=== PATIENT | female | born 1965 | race Caucasian/White ===

== ENCOUNTER 2017-02-24 08:20 | Emergency (ER) | payer BC ==
[~2017-02-24] VITALS: Ht 160 cm; Wt 93.9 kg
[~2017-02-24 08:20] MED LIST: OMEP20CA3 PO; [UNRECOGNIZED DRUG - OTHER]
[2017-02-24] MEDS ORDERED: OMEP40CA2 PO (08:40)
[2017-02-24] MEDS ORDERED: IMOD2CAP PO (08:40)
[2017-02-24] MEDS ORDERED: HUMI40KI SC (08:40)
[2017-02-24] MEDS ORDERED: PARO10TA84 PO (08:45)
[2017-02-24] MEDS ORDERED: PERCOCET 5MG/325MG TAB PO ONE (10:00)
--- NOTE | 2017-02-24 10:18 | REP ---
LEFT KNEE SERIES, COMPLETE: 02/24/2017. Clinical history: Soft-tissue swelling about the knee. There is some swelling along the medial aspect of the knee at the patellofemoral joint on the sunrise view. A suprapatellar effusion is noted on the lateral view. There is a patellar tilt and a few millimeters of lateral patellar subluxation on the sunrise view. No joint space narrowing in any of the three compartments. There is no loose body or osteochondral defect. Tiny spurs tibial spines and medial greater than lateral compartment. Proximal tibiofibular deflation intact. Impression: 1. Minor degenerative changes at the tibial spines and all three compartment margins. A suprapatellar effusion is seen and swelling anteriorly and medial to the patella with a few millimeters of patellar subluxation. Is there evidence of medial joint line tenderness? No visible fracture, loose body or osteochondral defect. Signed by Lauri Gilbert MD 02/24/2017 10:55 A
[2017-02-24] MEDS ORDERED: PERC5TAB6 PO (10:19)
[2017-02-24] MEDS ORDERED: MOBI7.5T10 PO (10:29)
[2017-02-24 10:32] VITALS: BP 165/96
== END 2017-02-24 10:34 | disposition home or self-care (01) ==
LOC: M ED 09:42
DX: M17.12 Unilateral primary osteoarthritis, left knee (principal); M25.562 Pain in left knee; M25.462 Effusion, left knee; M06.9 Rheumatoid arthritis, unspecified; K21.9 Gastro-esophageal reflux disease without esophagitis; K58.9 Irritable bowel syndrome, unspecified; Z87.891 Personal history of nicotine dependence; Z79.899 Other long term (current) drug therapy

== ENCOUNTER → 2017-03-25 | Outpatient (CLI) | payer BC ==
[~2017-03-25] MED LIST changes: +HUMI40KI SC; +IMOD2CAP PO; +MOBI7.5T10 PO; +OMEP40CA2 PO; +PARO10TA84 PO; +PERC5TAB6 PO
--- NOTE | 2017-03-25 10:26 | REPMRS ---
Patient History The patient states she had a clinical breast exam in 01/2017. Family history of colorectal cancer in father. Taking hormonal contraceptives for 9 years. Digital Woman Screen Mammo: March 25, 2017 - Exam #: [id number] Bilateral CC and MLO view(s) were taken. Technologist: Qi Smith, Technologist Prior study comparison: April 03, 2016, bilateral digital mammo screening bilat, performed at [facility]. September 21, 2014, bilateral digital mammo screening bilat, performed at [facility]. FINDINGS: The breast tissue is heterogeneously dense. This may lower the sensitivity of mammography. There has been no change in the appearance of the mammogram from the prior studies. There is a moderate amount of residual fibroglandular tissue which is fairly symmetric. There is no interval development of dominant mass, areas of architectural distortion, or clustered microcalcification typical of malignancy. ASSESSMENT: BI-RADS/ACR category 1 mammogram. Negative. Recommendation Routine screening mammogram in 1 year (for women over age 40). This mammogram was interpreted with the aid of an FDA-approved computer-aided dectection system. Electronically Signed By: Thor Lin MD 03/25/17 [id number]
== END ==
LOC: M WHC 07:43
PROVIDERS: ATTEND Nurse Practitioner Family
DX: Z12.31 Encounter for screening mammogram for malignant neoplasm of breast (principal); Z92.0 Personal history of contraception

== ENCOUNTER → 2017-04-11 | Outpatient (REF) | payer BC | LOC: M SFHCWAGY 13:07 | PROVIDERS: ATTEND Nurse Practitioner Women's Health | DX: N87.9 Dysplasia of cervix uteri, unspecified (principal) ==

== ENCOUNTER → 2018-01-11 | Outpatient (CLI) | payer BC | LOC: M LRY 11:35 | DX: M25.531 Pain in right wrist (principal) | CPT/HCPCS: 73110 ==

== ENCOUNTER → 2018-03-26 | Outpatient (CLI) | payer BC | LOC: M WHC 07:58 | DX: Z12.31 Encounter for screening mammogram for malignant neoplasm of breast (principal) | CPT/HCPCS: 77067 ==

== ENCOUNTER → 2018-03-26 | Outpatient (REF) | payer BC ==
[2018-03-26 12:11] LABS: LUTEINIZING HORMONE 9.6 mIU/mL
[2018-03-26 12:13] LABS: FOLLICLE STIMULATING HORMONE 36.9 mIU/mL
[2018-03-28 14:15] LABS: HPV HYBRID CAPTURE II Negative (Negative)
== END ==
LOC: M SFHCWAGY 08:17
DX: Z12.4 Encounter for screening for malignant neoplasm of cervix (principal); R23.2 Flushing; N95.1 Menopausal and female climacteric states
CPT/HCPCS: 83001

== ENCOUNTER → 2018-07-12 | Outpatient (CLI) | payer OTHER, BC | LOC: M EKG 11:13 | DX: Z01.810 Encounter for preprocedural cardiovascular examination (principal); G56.01 Carpal tunnel syndrome, right upper limb; G56.21 Lesion of ulnar nerve, right upper limb | CPT/HCPCS: 93005 ==

== ENCOUNTER → 2018-07-12 | Outpatient (CLI) | payer OTHER, BC | LOC: M WUC 12:12 | DX: S90.32XA Contusion of left foot, initial encounter (principal) | CPT/HCPCS: 73630 ==

== ENCOUNTER → 2018-10-05 | Outpatient (CLI) | payer BC ==
[2018-10-05 17:09] LABS: CHOLESTEROL LEVEL 247 MG/DL (<200); HDL CHOLESTEROL 55 MG/DL (>40); LDL CHOLESTEROL 146 MG/DL (<100); NON-HDL-C 192 MG/DL; TRIGLYCERIDES LEVEL 231 MG/DL (<150)
== END ==
LOC: M WUC 08:18
DX: I10 Essential (primary) hypertension (principal)
CPT/HCPCS: 80061

== ENCOUNTER 2018-11-28 07:05 | Day surgery (SDC) | payer BC ==
[~2018-11-28] VITALS: Ht 157.5 cm; Wt 86.5 kg
[~2018-11-28 07:05] MED LIST changes: +ENBR50IN4 SC; +LISI10TA4 PO; +MOBI4TAB PO; -MOBI7.5T10 PO; +NAPR-885 PO; +OTEZ1TAB3 PO; +PARO10TA3 PO; -PARO10TA84 PO; +PERC5TAB12 PO; -PERC5TAB6 PO; +TRAM50TA2 PO
[2018-11-28 07:33] LABS: HEMATOCRIT 39.4 % (36.0-47.0); MEAN CORPUSCULAR HEMOGLOBIN 29.3 pg (27.0-33.0); MEAN CORPUSCULAR VOLUME 88.9 fl (80.0-96.0); PLATELET COUNT, AUTOMATED 425 10^3/uL (150-450); RED BLOOD COUNT 4.43 10^6/uL (4.00-5.40); WHITE BLOOD COUNT 5.5 10^3/uL (4.0-10.0)
[2018-11-28] MEDS ORDERED: BUPIVACAINE HCL 0.25% 30 ML VIAL As Ordered ONE (09:04)
[2018-11-28] MEDS ORDERED: ONDANSETRON 4MG/2ML VIAL (J2405) As Ordered ONE (09:31)
[2018-11-28] MEDS ORDERED: LIDOCAINE 2% INJ 100 MG/5 ML SDV (FOR ANES.) As Ordered ONE (09:31)
[2018-11-28] MEDS ORDERED: KETOROLAC 60 MG/2 ML VIAL (J1885) As Ordered ONE (09:31)
[2018-11-28] MEDS ORDERED: PROPOFOL 200 MG/20 ML VIAL As Ordered ONE (09:31)
[2018-11-28] MEDS ORDERED: MIDAZOLAM INJ 2 MG/2 ML VIAL (J2250) As Ordered ONE (09:31)
[2018-11-28] MEDS ORDERED: fentaNYL 250 MCG/5 ML INJECTION (J3010) As Ordered ONE (09:31)
[2018-11-28] MEDS ORDERED: dexameTHASONE 4 MG/ML 1ML VIAL (J1100) As Ordered ONE (09:31)
[2018-11-28] MEDS ORDERED: ePHEDrine SULFATE 25 MG/5 ML(5MG/ML) SYRINGE As Ordered ONE (09:52)
[2018-11-28] MEDS ORDERED: METOCLOPRAMIDE INJ 10MG/2ML VIAL (J2765) IV PRN (10:15)
[2018-11-28] MEDS ORDERED: fentaNYL 100 MCG/2 ML INJECTION (J3010) IV PRN (10:15)
[2018-11-28] MEDS ORDERED: LR 1,000 ML IV SCH (10:15)
[2018-11-28] MEDS ORDERED: ONDANSETRON 4MG/2ML VIAL (J2405) IV PRN (10:15)
[2018-11-28] MEDS ORDERED: PERCOCET 5MG/325MG TAB PO PRN (10:15)
[2018-11-28 10:36] VITALS: BP 171/85
[2018-11-28] MEDS ORDERED: KETOROLAC 30 MG/ML VIAL (J1885) IV SCH (11:00)
--- NOTE | 2018-11-28 14:59 | RO ---
DATE OF PROCEDURE: 11/28/2018 PREOPERATIVE DIAGNOSIS: Embedded intrauterine device . POSTOPERATIVE DIAGNOSIS: Embedded intrauterine device. PROCEDURE PERFORMED: Intrauterine device removal. SURGEON: Dinorah Cerna MD JACK PRIZER: None. ANESTHESIA: General via laryngeal mask airway. ESTIMATED BLOOD LOSS: None. INTRAVENOUS FLUIDS: 600 mL. URINE OUTPUT: Not obtained. SPECIMENS: None. OPERATIVE FINDINGS: IUD in the uterine cavity. DESCRIPTION OF OPERATION: After informed consent was obtained and written consent was reviewed, the patient was brought to the operating room where general anesthesia was obtained via laryngeal mask airway. She was placed in lithotomy position, was prepped and draped in a normal sterile fashion. A time out in the operating room was then performed identifying the patient, procedure to be performed as well as drug allergies. A bivalve speculum was then placed revealing the cervix. Marcos forceps was then inserted into the cervical os where I was able to grasp the IUD and it was removed without any difficulty. Instrument were then removed from the patient's vagina. She was taken out of lithotomy position, was awakened from anesthesia and taken to the recovery in stable condition. Counts were correct. MTDD
== END 2018-11-28 11:09 | disposition home or self-care (01) ==
LOC: M SDC 07:05
PROVIDERS: ATTEND Obstetrics & Gynecology
DX: T83.39XA Other mechanical complication of intrauterine contraceptive device, initial encounter (principal); I10 Essential (primary) hypertension; K21.9 Gastro-esophageal reflux disease without esophagitis; Z79.899 Other long term (current) drug therapy; Z87.891 Personal history of nicotine dependence
CPT/HCPCS: 36415; 58301; 85027; 86850; 86900; 86901; J1100; J2250; J2405; J3010

== ENCOUNTER 2019-02-03 07:52 | Emergency (ER) | payer BC ==
[~2019-02-03] VITALS: Ht 157.5 cm; Wt 84.1 kg
[2019-02-03] MEDS ORDERED: METOCLOPRAMIDE INJ 10MG/2ML VIAL (J2765) IV ONE (09:15)
[2019-02-03] MEDS ORDERED: NS 1,000 ML IV ONE (09:15)
[2019-02-03 09:48] LABS: BASO % 0.6 % (0.0-1.0); EOS # 0.1 10^3/uL (0.0-0.50); EOS % 1.2 % (0.0-3.0); HEMATOCRIT 42.4 % (36.0-47.0); HEMOGLOBIN 14.1 g/dl (12.0-15.5); LYMPH # 1.4 10^3/uL (1.5-4.5); LYMPH % 20.8 % (24.0-44.0); MEAN CORPUSCULAR HEMOGLOBIN 29.4 pg (27.0-33.0); MEAN CORPUSCULAR HGB CONC 33.3 g/dl (32.0-36.5); MEAN CORPUSCULAR VOLUME 88.3 fl (80.0-96.0); MONO # 0.4 10^3/uL (0.0-0.8); MONO % 6.3 % (0.0-5.0); NEUTROPHILS # 4.9 10^3/uL (1.8-7.7); NEUTROPHILS % 70.7 % (36.0-66.0); PLATELET COUNT, AUTOMATED 398 10^3/uL (150-450); WHITE BLOOD COUNT 6.9 10^3/uL (4.0-10.0)
[2019-02-03 10:28] LABS: ALBUMIN 4.5 GM/DL (3.2-5.2); ALT/SGPT 18 U/L (12-78); BILIRUBIN,DIRECT < 0.1 MG/DL (0.0-0.2); BILIRUBIN,TOTAL 0.8 MG/DL (0.2-1.0); BLOOD UREA NITROGEN 17 MG/DL (7-18); CALCIUM LEVEL 9.1 MG/DL (8.5-10.1); CARBON DIOXIDE LEVEL 26 MEQ/L (21-32); CHLORIDE LEVEL 107 MEQ/L (98-107); CREATININE FOR GFR 0.81 MG/DL (0.55-1.30); GLOMERULAR FILTRATION RATE > 60.0 (>51); GLUCOSE, FASTING 91 MG/DL (70-100); LIPASE 90 U/L (73-393); POTASSIUM SERUM 4.3 MEQ/L (3.5-5.1); SODIUM LEVEL 139 MEQ/L (136-145); TOTAL PROTEIN 8.1 GM/DL (6.4-8.2)
[2019-02-03] MEDS ORDERED: REGL10TA6 PO (11:12)
[2019-02-03 11:18] VITALS: BP 154/84
== END 2019-02-03 11:25 | disposition home or self-care (01) ==
LOC: M ED 07:52
DX: R11.2 Nausea with vomiting, unspecified (principal); R19.7 Diarrhea, unspecified; M06.9 Rheumatoid arthritis, unspecified; F41.9 Anxiety disorder, unspecified; Z87.891 Personal history of nicotine dependence; Z88.8 Allergy status to other drugs, medicaments and biological substances; Z79.899 Other long term (current) drug therapy; Z79.1 Long term (current) use of non-steroidal anti-inflammatories (NSAID)
CPT/HCPCS: 80048; 80076; 83690; 85025; 96361; 96374; 99284; J2765

== ENCOUNTER → 2019-03-27 | Outpatient (CLI) | payer BC ==
[~2019-03-27] MED LIST changes: +REGL10TA6 PO
--- NOTE | 2019-03-27 09:05 | REPMRS ---
Patient History The patient states she had a clinical breast exam in 03/2019. Family history of colorectal cancer in father, prostate cancer at age 83 in paternal uncle. Took hormonal contraceptives for 14 years. Digital Woman Screen Mammo: March 27, 2019 - Exam #: [id number] Bilateral CC and MLO view(s) were taken. Technologist: Qi Smith, Technologist Prior study comparison: March 26, 2018, digital woman screen mammo performed at [facility]. March 25, 2017, digital woman screen mammo performed at [facility]. April 03, 2016, bilateral digital mammo screening bilat, performed at [facility]. FINDINGS: The breast tissue is heterogeneously dense. This may lower the sensitivity of mammography. There is a moderate amount of heterogeneously dense fibroglandular tissue which is fairly symmetric. There is no interval development of dominant mass, architectural distortion, or clustered microcalcification typical of malignancy. There has been no change in the appearance of the mammogram from the prior studies. 3-D tomosynthesis shows no additional findings. Assessment: BI-RADS/ACR category 1 mammogram. Negative Mammogram. Recommendation Routine screening mammogram of both breasts in 1 year (for women over age 40). This patient's Lifetime Breast Cancer RIsk is estimated at 8.8 %. This mammogram was interpreted with the aid of an FDA-approved computer-aided dectection system. Electronically Signed By: Chau Carvajal MD 03/27/19 0904
== END ==
LOC: M WHC 08:12
PROVIDERS: ATTEND Nurse Practitioner Women's Health
DX: Z12.31 Encounter for screening mammogram for malignant neoplasm of breast (principal); Z80.0 Family history of malignant neoplasm of digestive organs; Z92.0 Personal history of contraception

== ENCOUNTER → 2020-05-24 | Outpatient (REF) | payer BC ==
[~2020-05-24] MED LIST changes: +CITA20TA6 PO; -ENBR50IN4 SC; +ETAN50PE SC; +METH2.5T48 PO; +OMEP1CAP73 PO; -OMEP20CA3 PO; -OMEP40CA2 PO; +OMEP40CA97 PO
== END ==
LOC: M SFHCWAGY 10:48
PROVIDERS: ATTEND Nurse Practitioner Women's Health
DX: Z12.4 Encounter for screening for malignant neoplasm of cervix (principal)
CPT/HCPCS: 87624; G0123

== ENCOUNTER → 2020-05-24 | Outpatient (CLI) | payer BC ==
--- NOTE | 2020-05-25 07:28 | REP ---
BILATERAL SCREENING MAMMOGRAM WITH 3D TOMOSYNTHESIS: No family history of breast cancer. [facility] lifetime risk of breast cancer 8.6%. COMPARISON: Mammogram 03/27/2019 as well as other prior exams. Breast parenchyma is moderately dense in a heterogenous pattern, limiting the sensitivity of the mammogram. Possible round nodule is seen in the right axillary tail, upper outer quadrant, approximately 1.2 cm in diameter. No other definite mass is seen. No clustered microcalcifications are seen. No axillary adenopathy is seen. IMPRESSION: ACR 0, incomplete. Possible 1.2 cm nodule right axillary tail upper outer quadrant. Recommend spot compression views and ultrasound to further evaluate. BIRADS 0: BI-RADS/ACR category 0 mammogram, Incomplete: Need additional imaging evaluation and/or prior mammograms for comparison. This mammogram was interpreted with the aid of an FDA-approved computer-aided detection system. The patient states she/he had a clinical breast exam in 05/2020. The patient letter being requested is M0.
== END ==
LOC: M WHC 14:39
PROVIDERS: ATTEND Nurse Practitioner Women's Health
DX: R92.8 Other abnormal and inconclusive findings on diagnostic imaging of breast (principal)

== ENCOUNTER → 2020-05-28 | Outpatient (CLI) | payer BC | LOC: M LABSMTC 09:55 | PROVIDERS: ATTEND Anesthesiology | DX: Z01.818 Encounter for other preprocedural examination (principal); Z11.59 Encounter for screening for other viral diseases | CPT/HCPCS: C9803; U0003 ==

== ENCOUNTER 2020-06-01 07:11 | Day surgery (SDC) | payer BC ==
[~2020-06-01] VITALS: Ht 162.6 cm; Wt 94.7 kg
[~2020-06-01 07:11] MED LIST changes: +LIDOCAINE 2% MDV 20ML VIAL As Ordered ONE; +propofoL 200 MG/20 ML VIAL As Ordered ONE
[2020-06-01] MEDS ORDERED: NS 1,000 ML IV ONE (07:30)
--- NOTE | 2020-06-01 08:37 | ROOR ---
Patient Name: Annette Youssef Procedure Date: 06/01/2020 8:13 AM Date of : 1965 Age: 54 Room: [facility] Gender: Female Note Status: Finalized Procedure: Total Colonoscopy to Cecum Indications: Colon cancer screening in patient at increased risk: Colorectal cancer in father, High risk colon cancer surveillance: Personal history of colonic polyps, Last colonoscopy: 2015 Providers: Sharan Beasley MD Referring MD: Rubén Carnes MD Requesting Provider: Medicines: Monitored Anesthesia Care Complications: No immediate complications. Procedure: Pre-Anesthesia Assessment: - The heart rate, respiratory rate, oxygen saturations, blood pressure, adequacy of pulmonary ventilation, and response to care were monitored throughout the procedure. The Colonoscope was introduced through the anus and advanced to the cecum, identified by appendiceal orifice and ileocecal valve. The colonoscopy was performed without difficulty. The patient tolerated the procedure well. The quality of the bowel preparation was excellent. Findings: The perianal and digital rectal examinations were normal. Non-bleeding internal hemorrhoids were found during retroflexion. The hemorrhoids were small and Grade I (internal hemorrhoids that do not prolapse). No other significant abnormalities were identified in a careful examination of the remainder of the colon. The exam was otherwise without abnormality on direct and retroflexion views. Impression: - Non-bleeding internal hemorrhoids. - The examination was otherwise normal on direct and retroflexion views. - No specimens collected. - The exam was otherwise normal to the cecum. Recommendation: - Patient has a contact number available for emergencies. The signs and symptoms of potential delayed complications were discussed with the patient. Return to normal activities tomorrow. Written discharge instructions were provided to the patient. - High fiber diet. - Discharge patient to home. - Continue present medications. - Repeat colonoscopy in 5 years for screening purposes. - Return to referring physician. - The findings and recommendations were discussed with the patient. Sharan Beasley MD Sharan Beasley MD 06/01/2020 8:36:54 AM Electronically signed by Sharan Beasley MD Number of Addenda: 0 Note Initiated On: 06/01/2020 8:13 AM Estimated Blood Loss: Estimated blood loss: none.
[2020-06-01 08:58] VITALS: BP 149/71
== END 2020-06-01 09:00 | disposition home or self-care (01) ==
LOC: M OPP 07:11
PROVIDERS: ATTEND Internal Medicine Gastroenterology
DX: Z12.11 Encounter for screening for malignant neoplasm of colon (principal); Z86.010 Personal history of colon polyps; Z80.0 Family history of malignant neoplasm of digestive organs; K64.0 First degree hemorrhoids; K21.9 Gastro-esophageal reflux disease without esophagitis; Z79.899 Other long term (current) drug therapy; Z88.2 Allergy status to sulfonamides; Z88.8 Allergy status to other drugs, medicaments and biological substances; Z87.891 Personal history of nicotine dependence

== ENCOUNTER → 2020-06-03 | Outpatient (CLI) | payer BC ==
[~2020-06-03] MED LIST changes: -LIDOCAINE 2% MDV 20ML VIAL As Ordered ONE; -propofoL 200 MG/20 ML VIAL As Ordered ONE
--- NOTE | 2020-06-03 15:32 | REP ---
DIAGNOSTIC MAMMOGRAM RIGHT BREAST AND RIGHT BREAST ULTRASOUND: Spot compression views of the right breast performed in the upper outer quadrant and correlated with a recent mammogram of 05/24/2020, and compared to other prior exams. There does appear to be a smoothly marginated nodule approximately 1.2 cm in diameter in the right axillary tail. Comparing to prior studies dating back to 03/26/2018 including tomographic images, this appears stable. Real-time sonographic evaluation of the right axillary tail region demonstrates an intramammary lymph node 2.1 x 1.4 x 1.3 cm. This probably corresponds to the mammographic abnormality. IMPRESSION: ACR 2 benign. Smoothly marginated nodular opacity in the right axillary tail appears unchanged since 2018 and by ultrasound appears to represent an intramammary lymph node. ACR 2 benign. Stable findings. Recommend followup mammogram in 1 year. Patient letter requested is M1.
== END ==
LOC: M WHC 10:25
PROVIDERS: ATTEND Nurse Practitioner Women's Health
DX: Z12.31 Encounter for screening mammogram for malignant neoplasm of breast (principal)

== ENCOUNTER → 2020-08-05 | Outpatient (CLI) | payer BC ==
--- NOTE | 2020-08-12 15:51 | DEXA ---
AP SPINE L1 - L4 1.043 -1.2 -0.4 LT FEMUR TOTAL 1.010 0.0 0.7 LT NECK 0.913 -0.9 0.1 RT FEMUR TOTAL 0.952 -0.4 0.2 RT NECK 0.995 -0.3 0.7 TOTAL BODY TOTAL OTHER COMMENTS: Normal bone densitometry of the hips. There is low bone density of the spine. FOLLOW-UP: Recommendation for the next bone density exam: 2 years. HEIDI
== END ==
LOC: M WHC 10:29
PROVIDERS: ATTEND Family Medicine
DX: Z13.820 Encounter for screening for osteoporosis (principal)

== ENCOUNTER → 2021-04-17 | Outpatient (CLI) | payer BC ==
[~2021-04-17] MED LIST changes: +LISI10TA22 PO; -LISI10TA4 PO
[2021-04-17 13:26] LABS: CHOLESTEROL RISK RATIO 4.583 (<5)
== END ==
LOC: M WUC 09:36
PROVIDERS: ATTEND Family Medicine
DX: Z79.899 Other long term (current) drug therapy (principal); I10 Essential (primary) hypertension

== ENCOUNTER → 2021-06-14 | Outpatient (CLI) | payer BC ==
[~2021-06-14] MED LIST changes: +OMEP40CA4 PO; -OMEP40CA97 PO
--- NOTE | 2021-06-14 16:11 | REPMRS ---
Patient History The patient states she had a clinical breast exam in 05/2021. Family history of colorectal cancer in father, prostate cancer at age 83 in paternal uncle. Took hormonal contraceptives for 14 years. Digital Woman Screen Mammo: June 14, 2021 - Exam #: [id number] Bilateral CC and MLO view(s) were taken. Technologist: Fozia Olmos, Technologist Prior study comparison: June 03, 2020, right breast diagnostic unilateral mammo performed at [facility]. May 24, 2020, bilateral digital woman screen mammo performed at [facility]. FINDINGS: There are scattered fibroglandular densities. Screening. Digital screening (2D) mammography was performed bilaterally in the CC and MLO projections. Additionally, breast tomosynthesis (3D mammography) was performed bilaterally in the CC and MLO projections. Todays exam was compared to the prior exam/exams. By history, the patient has no complaints of a palpable breast abnormality or other significant breast complaints. The breasts are unchanged in size and shape. There are no annemarie-soft tissue densities or spiculated masses. There is no internal architectural distortion. Once again, stable benign appearing calcifications are seen.There are no suspicious annemarie-calcific clusters. Skin thickening or nipple retraction is not present. IMPRESSION: BI-RADS Category 2- Benign Findings. There is no evidence of malignant alteration of the breasts. Followup examination recommended in one year. The Volpara volumetric breast density category is B, there are scattered areas of fibroglandular densities. This mammogram was read with the assistance of [employer],an FDA approved computer aided detection system for mammography. The lifetime Tyrer-Cuzick score is 8.2% Negative x-ray reports should not delay surgical consultation if a dominant or clinically suspicious mass is present. Not all breast cancers can be identified by mammography. Therefore, we recommend that you continue to perform regular breast self-examination and physical examination and then promptly contact your physician of any concerns or changes. Adenosis and dense breasts may obscure an underlying neoplasm. Assessment: BI-RADS/ACR category 2 mammogram. Benign Findings. Recommendation Routine screening mammogram of both breasts in 1 year. Electronically Signed By: Patrick Albert DO 06/14/21 [id number]
== END ==
LOC: M WHC 14:24
PROVIDERS: ATTEND Nurse Practitioner Women's Health
DX: Z12.31 Encounter for screening mammogram for malignant neoplasm of breast (principal)

== ENCOUNTER → 2021-09-04 | Outpatient (CLI) | payer BC ==
--- NOTE | 2021-09-08 14:49 | REPVR ---
PROCEDURE INFORMATION: Exam: CT Maxillofacial Without Contrast, Sinus Exam date and time: 09/04/2021 9:58 AM Age: 56 years old Clinical indication: Pain; Other: Sinus; Additional info: Pansinusitis TECHNIQUE: Imaging protocol: CT Maxillofacial without contrast. Focus on the sinuses. Radiation optimization: All CT scans at this facility use at least one of these dose optimization techniques: automated exposure control; mA and/or kV adjustment per patient size (includes targeted exams where dose is matched to clinical indication); or iterative reconstruction. COMPARISON: No relevant prior studies available. FINDINGS: Frontal sinuses: Minimal fluid in the floor the left frontal sinus. Ethmoid air cells: Mucoperiosteal thickening and likely fluid in several anterior middle left ethmoid air cells. Sphenoid sinuses: No air-fluid levels. Maxillary sinuses: The left maxillary antrum is almost completely opacified. The right is patent. The right ostiomeatal unit is patent. The left is obstructed by mucoperiosteal thickening or a polyp. Nasal cavity/Septum: Minimal rightward deviation. No significant fluid in the nasal cavity. The middle ear cavities and mastoid air cells are clear. Orbital cavity: Orbits are unremarkable. Globes appear normal. Bones/joints: No acute facial bone fracture. Soft tissues: Unremarkable. IMPRESSION: There is near opacification of the left maxillary antrum and several anterior and middle left ethmoid air cells with obstruction of the left ostiomeatal complex which may be due to sinusitis and or obstructing polyp among other etiologies. Electronically signed by: Viv Gamez On 09/08/2021 14:48:57 PM
== END ==
LOC: M RAD 09:52
PROVIDERS: ATTEND Otolaryngology
DX: R93.0 Abnormal findings on diagnostic imaging of skull and head, not elsewhere classified (principal); J32.4 Chronic pansinusitis; H90.3 Sensorineural hearing loss, bilateral

== ENCOUNTER → 2022-08-23 | Outpatient (CLI) | payer BC | LOC: M WHC 08:03 | PROVIDERS: ATTEND Nurse Practitioner Family | DX: Z12.31 Encounter for screening mammogram for malignant neoplasm of breast (principal) ==

== ENCOUNTER → 2022-08-23 | Outpatient (REF) | payer BC | LOC: M SFHCWAGY 17:49 | PROVIDERS: ATTEND Nurse Practitioner Family | DX: Z12.4 Encounter for screening for malignant neoplasm of cervix (principal) ==

== ENCOUNTER → 2023-06-14 | Outpatient (CLI) | payer BC ==
[~2023-06-14] MED LIST changes: +APRE30TA3 PO; -OTEZ1TAB3 PO
[2023-06-14 10:30] LABS: BASO # 0.1 10^3/uL (0.0-0.2); BASO % 1.4 % (0.0-1.0); EOS # 0.2 10^3/uL (0.0-0.5); EOS % 4.3 % (0.0-3.0); HEMATOCRIT 35.1 % (36.0-47.0); HEMOGLOBIN 11.2 g/dl (12.0-15.5); LYMPH # 1.2 10^3/uL (1.5-5.0); MEAN CORPUSCULAR HEMOGLOBIN 30.5 pg (27.0-33.0); MEAN CORPUSCULAR HGB CONC 31.9 g/dl (32.0-36.5); MEAN CORPUSCULAR VOLUME 95.6 fl (80.0-96.0); MONO # 0.5 10^3/uL (0.0-0.8); MONO % 11.1 % (2.0-8.0); NEUTROPHILS # 2.9 10^3/uL (1.5-8.5); NEUTROPHILS % 58.8 % (36.0-66.0); PLATELET COUNT, AUTOMATED 377 10^3/uL (150-450); RED BLOOD COUNT 3.67 10^6/uL (4.00-5.40); WHITE BLOOD COUNT 4.9 10^3/uL (4.0-10.0)
[2023-06-14 10:56] LABS: ALKALINE PHOSPHATASE 91 U/L (46-116); ALT/SGPT 21 U/L (7.0-40); AST/SGOT 13 U/L (<34); BILIRUBIN,TOTAL 0.5 MG/DL (0.3-1.2); BLOOD UREA NITROGEN 14 MG/DL (9-23); CALCIUM LEVEL 8.9 MG/DL (8.5-10.1); CARBON DIOXIDE LEVEL 26 MMOL/L (20-31); CHLORIDE LEVEL 107 MMOL/L (98-107); CHOLESTEROL LEVEL 246 MG/DL (<200); CHOLESTEROL RISK RATIO 4.11 (<5); CREATININE FOR GFR 0.68 MG/DL (0.55-1.30); GLOMERULAR FILTRATION RATE > 60.0 (>51); GLUCOSE, FASTING 84 MG/DL (60-100); HDL CHOLESTEROL 59.8 MG/DL (>40); LDL CHOLESTEROL 135.8 MG/DL (<100); NON-HDL-C 186.2 MG/DL; POTASSIUM SERUM 4.3 MMOL/L (3.5-5.1); SODIUM LEVEL 143 MMOL/L (136-145); TOTAL PROTEIN 6.7 G/DL (5.7-8.2); TRIGLYCERIDES LEVEL 252 MG/DL (<150)
== END ==
LOC: M WUC 08:16
PROVIDERS: ATTEND Family Medicine
DX: E55.9 Vitamin D deficiency, unspecified (principal); I10 Essential (primary) hypertension

== ENCOUNTER → 2023-08-30 | Outpatient (REF) | payer BC | LOC: M SFHCWAGY 15:43 | PROVIDERS: ATTEND Nurse Practitioner Family | DX: Z12.4 Encounter for screening for malignant neoplasm of cervix (principal) | CPT/HCPCS: 87624; G0123 ==

== ENCOUNTER → 2023-08-30 | Outpatient (CLI) | payer BC | LOC: M WHC 10:30 | PROVIDERS: ATTEND Nurse Practitioner Family | DX: Z12.31 Encounter for screening mammogram for malignant neoplasm of breast (principal); M81.0 Age-related osteoporosis without current pathological fracture ==

== ENCOUNTER → 2023-08-30 | Outpatient (CLI) | payer BC | LOC: M WHC 11:00 | PROVIDERS: ATTEND Nurse Practitioner Family | DX: Z12.31 Encounter for screening mammogram for malignant neoplasm of breast (principal); M81.0 Age-related osteoporosis without current pathological fracture ==

== ENCOUNTER → 2024-09-01 | Outpatient (CLI) | payer BC | LOC: M WHC 09:28 | PROVIDERS: ATTEND Nurse Practitioner Family | DX: Z12.31 Encounter for screening mammogram for malignant neoplasm of breast (principal) ==

== ENCOUNTER → 2025-01-18 | Outpatient (CLI) | payer BC ==
[2025-01-18 17:34] LABS: BASO % 0.6 % (0.0-1.0); EOS # 0.2 10^3/uL (0.0-0.5); EOS % 3.2 % (0.0-3.0); HEMATOCRIT 35.6 % (36.0-47.0); HEMOGLOBIN 11.5 g/dl (12.0-15.5); LYMPH # 1.5 10^3/uL (1.5-5.0); LYMPH % 29.7 % (24.0-44.0); MEAN CORPUSCULAR HEMOGLOBIN 30.3 pg (27.0-33.0); MEAN CORPUSCULAR HGB CONC 32.3 g/dl (32.0-36.5); MEAN CORPUSCULAR VOLUME 93.9 fl (80.0-96.0); MONO # 0.5 10^3/uL (0.0-0.8); MONO % 9.9 % (2.0-8.0); NEUTROPHILS # 2.8 10^3/uL (1.5-8.5); NEUTROPHILS % 56.2 % (36.0-66.0); PLATELET COUNT, AUTOMATED 366 10^3/uL (150-450); RED BLOOD COUNT 3.79 10^6/uL (4.00-5.40)
[2025-01-18 17:37] LABS: BASO % 0.8 % (0.0-1.0); EOS # 0.2 10^3/uL (0.0-0.5); HEMATOCRIT 35.5 % (36.0-47.0); HEMOGLOBIN 11.5 g/dl (12.0-15.5); LYMPH # 1.5 10^3/uL (1.5-5.0); LYMPH % 29.1 % (24.0-44.0); MEAN CORPUSCULAR HEMOGLOBIN 30.4 pg (27.0-33.0); MEAN CORPUSCULAR HGB CONC 32.4 g/dl (32.0-36.5); MEAN CORPUSCULAR VOLUME 93.9 fl (80.0-96.0); MONO # 0.5 10^3/uL (0.0-0.8); NEUTROPHILS # 2.9 10^3/uL (1.5-8.5); NEUTROPHILS % 57.7 % (36.0-66.0); PLATELET COUNT, AUTOMATED 363 10^3/uL (150-450); RED BLOOD COUNT 3.78 10^6/uL (4.00-5.40)
[2025-01-18 17:42] LABS: ERYTHROCYTE SEDIMENTATION RATE 15 mm/hr (0-30)
[2025-01-18 17:59] LABS: ALT/SGPT 20 U/L (7.0-40); AST/SGOT 15 U/L (<34); BLOOD UREA NITROGEN 16 MG/DL (9-23); C REACTIVE PROTEIN QUANTITATIV < 0.50 MG/DL (<1.0); CREATININE FOR GFR 0.72 MG/DL (0.55-1.30); GLOMERULAR FILTRATION RATE > 60.0 (>51)
[2025-01-18 18:01] LABS: ALBUMIN 4.1 G/DL (3.2-5.2); ALKALINE PHOSPHATASE 99 U/L (35-104); ALT/SGPT 20 U/L (7.0-40); AST/SGOT 16 U/L (<34); BILIRUBIN,TOTAL 0.5 MG/DL (0.3-1.2); BLOOD UREA NITROGEN 15 MG/DL (9-23); CALCIUM LEVEL 9.1 MG/DL (8.5-10.1); CARBON DIOXIDE LEVEL 28 MMOL/L (20-31); CHLORIDE LEVEL 106 MMOL/L (98-107); CHOLESTEROL LEVEL 260 MG/DL (<200); CHOLESTEROL RISK RATIO 4.27 (<5); CREATININE FOR GFR 0.74 MG/DL (0.55-1.30); GLOMERULAR FILTRATION RATE > 60.0 (>51); GLUCOSE, FASTING 84 MG/DL (60-100); HDL CHOLESTEROL 60.8 MG/DL (>40); LDL CHOLESTEROL 147.4 MG/DL (<100); NON-HDL-C 199.2 MG/DL; POTASSIUM SERUM 3.9 MMOL/L (3.5-5.1); SODIUM LEVEL 141 MMOL/L (136-145); TOTAL PROTEIN 7.4 G/DL (5.7-8.2); TRIGLYCERIDES LEVEL 259 MG/DL (<150)
[2025-01-18 18:04] LABS: TOTAL 25(OH) VITAMIN D 19.2 NG/ML (20.0-100.0)
== END ==
LOC: M WUC 13:58
PROVIDERS: ATTEND Nurse Practitioner Family
DX: Z79.899 Other long term (current) drug therapy (principal)

== ENCOUNTER → 2025-04-05 | Outpatient (CLI) | payer BC ==
[2025-04-05 18:17] LABS: C REACTIVE PROTEIN QUANTITATIV < 0.50 MG/DL (<1.0); IRON (FE) 74 UG/DL (50-170); TOTAL IRON BINDING CAPACITY 370 UG/DL (250-425)
[2025-04-05 18:18] LABS: ALBUMIN 4.1 G/DL (3.2-5.2); ALT/SGPT 22 U/L (7.0-40); AST/SGOT 16 U/L (<34); BLOOD UREA NITROGEN 19 MG/DL (9-23); CREATININE FOR GFR 0.81 MG/DL (0.55-1.30); GLOMERULAR FILTRATION RATE 83.6 (>51)
[2025-04-05 18:19] LABS: FERRITIN 27.7 NG/ML (7.3-270.7)
[2025-04-05 18:20] LABS: FOLATE 21.94 NG/ML (>5.4); VITAMIN B12 LEVEL 706 PG/ML (211-911)
[2025-04-05 18:21] LABS: BASO # 0.1 10^3/uL (0.0-0.2); BASO % 1.1 % (0.0-1.0); EOS # 0.2 10^3/uL (0.0-0.5); EOS % 4.6 % (0.0-3.0); HEMATOCRIT 34.2 % (36.0-47.0); LYMPH # 1.6 10^3/uL (1.5-5.0); LYMPH % 32.6 % (24.0-44.0); MEAN CORPUSCULAR HEMOGLOBIN 30.4 pg (27.0-33.0); MEAN CORPUSCULAR HGB CONC 32.2 g/dl (32.0-36.5); MEAN CORPUSCULAR VOLUME 94.5 fl (80.0-96.0); MONO # 0.5 10^3/uL (0.0-0.8); MONO % 10.3 % (2.0-8.0); NEUTROPHILS # 2.4 10^3/uL (1.5-8.5); NEUTROPHILS % 50.8 % (36.0-66.0); PLATELET COUNT, AUTOMATED 361 10^3/uL (150-450); RED BLOOD COUNT 3.62 10^6/uL (4.00-5.40); WHITE BLOOD COUNT 4.8 10^3/uL (4.0-10.0)
[2025-04-05 18:41] LABS: ERYTHROCYTE SEDIMENTATION RATE 12 mm/hr (0-30)
== END ==
LOC: M WUC 13:32
PROVIDERS: ATTEND Nurse Practitioner Family
DX: Z79.899 Other long term (current) drug therapy (principal)

== ENCOUNTER → 2025-09-02 | Outpatient (CLI) | payer BC ==
[~2025-09-02] MED LIST changes: +FOLI1TAB11 PO; +IRON240T PO; +VITA100062 PO
== END ==
LOC: M WHC 10:16
PROVIDERS: ATTEND Physician Assistant
DX: Z13.820 Encounter for screening for osteoporosis (principal); Z12.31 Encounter for screening mammogram for malignant neoplasm of breast; M85.80 Other specified disorders of bone density and structure, unspecified site; R92.333 Mammographic heterogeneous density, bilateral breasts